=== PATIENT | female | born 1970 | race Caucasian/White ===

== ENCOUNTER → 2017-06-15 | Outpatient (CLI) | payer BC ==
--- NOTE | 2017-06-16 10:05 | MM ---
Reason for exam: screening (asymptomatic). Last mammogram was performed 7 years and 1 month ago. History: Family history of breast cancer in maternal aunt and breast cancer in paternal grandmother. Physical Findings: A clinical breast exam by your physician is recommended on an annual basis and results should be correlated with mammographic findings. MG Screening Mammo w CAD Bilateral CC, MLO, and XCCL view(s) were taken. Prior study comparison: May 18, 2010, bilateral digital screening mammo w/CAD. August 21, 2009, mammogram, performed at [facility]. The breast tissue is heterogeneously dense. This may lower the sensitivity of mammography. Finding: There are typically benign round calcifications in both breasts. There is no discrete abnormality. No significant changes in finding since May 18, 2010 and August 21, 2009. ASSESSMENT: Benign, BI-RAD 2 RECOMMENDATION: Routine screening mammogram of both breasts in 1 year.
== END | disposition home or self-care (01) ==
LOC: RADMAMWWP 13:58
PROVIDERS: ATTEND Family Medicine
DX: Z12.31 Encounter for screening mammogram for malignant neoplasm of breast (principal)
CPT/HCPCS: 77067

== ENCOUNTER 2017-07-13 06:41 | Day surgery (SDC) | payer BC ==
[2017-07-12 13:01] VITALS: BMI 34.2
[~2017-07-13 06:41] MED LIST: LACTATED RINGERS 1,000 ML IV SCH
[2017-07-13 06:59] VITALS: TEMP 98
[2017-07-13 07:12] LABS: Glucose,Whole Blood 140 mg/dL (75-99)
[2017-07-13] MEDS ORDERED: PROPOFOL 10 MG/ML 20 ML VIAL IV ONE (07:35)
[2017-07-13 08:39] VITALS: BP 131/86; PULSE 73; RESP 16
--- NOTE | 2017-07-13 08:48 | P.PCN ---
Date of Procedure: 07/13/17 Procedure(s) Performed: BRIEF HISTORY: Patient is a 47-year-old pleasant white female, scheduled for an elective colonoscopy as a part of chronic diarrhea and fecal incontinence for the last several months duration. She has about 3-4 loose watery bowel movement daily. Denies any blood or mucus in the stool. She is hence scheduled for colonoscopy to evaluate further. PROCEDURE PERFORMED: Colonoscopy with biopsy and snare polypectomy. PREOPERATIVE DIAGNOSIS:. Diarrhea and fecal incontinence. IV sedation per Anesthesia. PROCEDURE: After informed consent was obtained, the patient, was brought into the endoscopy unit. IV sedation was administered by Anesthesia under continuous monitoring. Digital rectal examination was normal. Initially the Olympus CF- 160 flexible video colonoscope was then inserted in the rectum, gradually advanced into the cecum without any difficulty. Careful examination was performed as the scope was gradually being withdrawn. Ileocecal valve and the appendiceal orifice were visualized and appeared normal. Prep was excellent. In the base of cecum there was a 3-4 cm large polyp noted involving the appendiceal orifice status post piecemeal snare polypectomy and complete polyp that was accomplished. Mucosa of the cecum, ascending colon, transverse colon, descending colon, sigmoid colon, and rectum appeared normal. In the mid rectum there was a large diverticulum identified. Biopsies were done from ascending and descending colon to rule out metastatic/collagenous colitis. Retroflexion was performed in the rectum and no lesions were seen. The patient tolerated the procedure well. IMPRESSION: 3-4 cm cecal polyp the base of which involving the appendiceal orifice status post complete polypectomy in a piecemeal fashion. Rest of the colon appeared normal Large diverticulum in the mid rectum. RECOMMENDATIONS: Findings of this examination were discussed with the patient as well as a family. She was advised to follow with the biopsy results and she' ll be seen in office in one to 2 weeks. She will need to have a repeat surveillance colonoscopy in 3-4 months to ensure complete polypectomy.
== END 2017-07-13 08:55 | disposition home or self-care (01) ==
LOC: ORWHC2ENDO 06:41
PROVIDERS: ATTEND Internal Medicine Gastroenterology
DX: D12.0 Benign neoplasm of cecum (principal); J45.909 Unspecified asthma, uncomplicated; K57.30 Diverticulosis of large intestine without perforation or abscess without bleeding; E11.9 Type 2 diabetes mellitus without complications; Z79.84 Long term (current) use of oral hypoglycemic drugs; Z79.899 Other long term (current) drug therapy; Z90.49 Acquired absence of other specified parts of digestive tract; Z90.710 Acquired absence of both cervix and uterus; Z88.0 Allergy status to penicillin; Z88.5 Allergy status to narcotic agent; Z88.8 Allergy status to other drugs, medicaments and biological substances
CPT/HCPCS: 88305; 45385; 45380; J2704

== ENCOUNTER 2017-09-30 06:48 | Day surgery (SDC) | payer BC ==
[2017-09-27 16:05] VITALS: BMI 34.1
[2017-09-30 07:10] VITALS: TEMP 98.7
[2017-09-30] MEDS ORDERED: LACTATED RINGERS 1,000 ML IV ONE ×2 (07:12)
[2017-09-30 07:15] LABS: Glucose,Whole Blood 170 mg/dL (75-99)
[2017-09-30] MEDS ORDERED: PROPOFOL 10 MG/ML 20 ML VIAL IV ONE (07:42)
[2017-09-30 08:23] VITALS: RESP 16
[2017-09-30 08:24] VITALS: BP 137/88; PULSE 75
--- NOTE | 2017-09-30 08:29 | P.PCN ---
Date of Procedure: 09/30/17 Procedure(s) Performed: BRIEF HISTORY: Patient is a 47-year-old pleasant white female scheduled for an elective colonoscopy as a part of follow-up of large cecal polyp noted on colonoscopy 3 months ago. The cecal polyp was 4 cm and biopsies revealed tubular villous adenoma. She is hence scheduled for surveillance colonoscopy today. PROCEDURE PERFORMED: Colonoscopy with snare polypectomy. PREOPERATIVE DIAGNOSIS: Follow-up large cecal polyp. IV sedation per Anesthesia. PROCEDURE: After informed consent was obtained, the patient, was brought into the endoscopy unit. IV sedation was administered by Anesthesia under continuous monitoring. Digital rectal examination was normal. Initially the Olympus CF- 160 flexible video colonoscope was then inserted in the rectum, gradually advanced into the cecum without any difficulty. Careful examination was performed as the scope was gradually being withdrawn. Ileocecal valve and the appendiceal orifice were visualized and appeared normal. Prep was excellent. The cecum there was a 5 mm residual polyp that was removed by snare polypectomy. In the ascending colon there was another 5 mm polyp removed by snare polypectomy. The rest of the mucosa of the cecum, ascending colon, transverse colon, descending colon, sigmoid colon, and rectum appeared normal. In the rectum there was a large diverticulum noted. Retroflexion was performed in the rectum and no lesions were seen. The patient tolerated the procedure well. IMPRESSION: 5 mm residual cecal polyp status post polypectomy 5 mm ascending colon polyp status post polypectomy Rectal diverticulum RECOMMENDATIONS: Findings of this examination were discussed with the patient as well as her family. She was advised to follow with the biopsy results. If the biopsy shows a tubular adenoma she can have a repeat colonoscopy in 3 years. ].
== END 2017-09-30 08:41 | disposition home or self-care (01) ==
LOC: ORWHC2ENDO 06:48
PROVIDERS: ATTEND Internal Medicine Gastroenterology
DX: Z12.11 Encounter for screening for malignant neoplasm of colon (principal); K63.5 Polyp of colon; E78.5 Hyperlipidemia, unspecified; I10 Essential (primary) hypertension; E11.9 Type 2 diabetes mellitus without complications; K57.30 Diverticulosis of large intestine without perforation or abscess without bleeding; Z88.0 Allergy status to penicillin; Z88.8 Allergy status to other drugs, medicaments and biological substances; Z79.84 Long term (current) use of oral hypoglycemic drugs; Z79.899 Other long term (current) drug therapy
CPT/HCPCS: 88305; 45385; J2704

== ENCOUNTER → 2018-06-29 | Outpatient (CLI) | payer BC ==
--- NOTE | 2018-06-29 13:57 | CT ---
EXAMINATION TYPE: CT brain wo con DATE OF EXAM: 06/29/2018 COMPARISON: None. HISTORY: Headache CT DLP: 1054.2 mGycm. Automated Exposure Control for Dose Reduction was Utilized. TECHNIQUE: CT scan of the head is performed without contrast. FINDINGS: There is no acute intracranial hemorrhage, mass effect, or midline shift identified. The ventricles and sulci are within normal limits in size. Sim-white matter differentiation is maintain ed. The globes are intact and the visualized sinuses are clear. The calvarium is intact. IMPRESSION: No acute intracranial hemorrhage or midline shift is seen. Unremarkable study.
== END | disposition home or self-care (01) ==
LOC: RADCTMAIN 13:28
PROVIDERS: ATTEND Family Medicine
DX: R51 Headache (principal); Z88.0 Allergy status to penicillin; Z88.5 Allergy status to narcotic agent; Z88.8 Allergy status to other drugs, medicaments and biological substances
CPT/HCPCS: 70450

== ENCOUNTER → 2018-08-21 | Outpatient (CLI) | payer BC ==
[2018-08-16 14:03] VITALS: BMI 34.2
[2018-08-21 13:08] VITALS: BP 154/94; PULSE 94; RESP 18
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
== END | disposition home or self-care (01) ==
LOC: PNWHC3 12:19
PROVIDERS: ATTEND Specialist
DX: G89.29 Other chronic pain (principal); M47.812 Spondylosis without myelopathy or radiculopathy, cervical region; M46.92 Unspecified inflammatory spondylopathy, cervical region; R51 Headache; Z79.1 Long term (current) use of non-steroidal anti-inflammatories (NSAID)
CPT/HCPCS: 99201

== ENCOUNTER → 2019-05-08 | Outpatient (CLI) | payer BC ==
--- NOTE | 2019-05-09 09:50 | MM ---
Reason for exam: screening (asymptomatic). Last mammogram was performed 1 year and 11 months ago. History: Family history of breast cancer in maternal aunt and breast cancer in paternal grandmother. Physical Findings: A clinical breast exam by your physician is recommended on an annual basis and results should be correlated with mammographic findings. MG 3D Screening Mammo W/Cad Bilateral CC and MLO view(s) were taken. Prior study comparison: June 15, 2017, bilateral MG screening mammo w CAD. May 18, 2010, bilateral digital screening mammo w/CAD. The breast tissue is heterogeneously dense. This may lower the sensitivity of mammography. Benign appearing bilateral calcifications. ASSESSMENT: Benign, BI-RAD 2 RECOMMENDATION: Routine screening mammogram of both breasts in 1 year.
== END | disposition home or self-care (01) ==
LOC: RADMAMWWP 14:57
PROVIDERS: ATTEND Family Medicine
DX: Z12.31 Encounter for screening mammogram for malignant neoplasm of breast (principal)
CPT/HCPCS: 77063; 77067

== ENCOUNTER 2020-05-02 07:08 | Day surgery (SDC) | payer BC ==
[2020-04-29 11:38] VITALS: BMI 32.3
[2020-05-02] MEDS ORDERED: LACTATED RINGERS 1,000 ML IV SCH (07:46)
[2020-05-02 07:49] VITALS: RESP 16; TEMP 96.7
[2020-05-02] MEDS ORDERED: PROPOFOL 10 MG/ML 20 ML VIAL IV ONE (08:01)
[2020-05-02 08:02] LABS: Glucose,Whole Blood 151 mg/dL (75-99)
--- NOTE | 2020-05-02 08:23 | P.PCN ---
Date of Procedure: 05/02/20 Procedure(s) Performed: BRIEF HISTORY: Patient is a 50-year-old pleasant white female scheduled for an elective colonoscopy as a part of follow-up of large cecal polyp noted in June 2017. She was noted to have a 3-4 cm broad-based tubulovillous and adenoma in the cecum that was removed by snare polypectomy and a repeat colonoscopy 3 months later revealed a 5 mm residual polyp that was removed. PROCEDURE PERFORMED: Colonoscopy with biopsy. PREOPERATIVE DIAGNOSIS: Follow-up large cecal polyp. IV sedation per Anesthesia. PROCEDURE: After informed consent was obtained, the patient, was brought into the endoscopy unit. IV sedation was administered by Anesthesia under continuous monitoring. Digital rectal examination was normal. Initially the Olympus CF-160 flexible video colonoscope was then inserted in the rectum, gradually advanced into the cecum without any difficulty. Careful examination was performed as the scope was gradually being withdrawn. Ileocecal valve and the appendiceal orifice were visualized and appeared normal. Prep was excellent. No evidence of residual cecal polyp. Mucosa of the cecum, ascending colon, transverse colon, descending colon, sigmoid colon, and rectum appeared normal. The distal rectum there was a slightly raised 2 cm submucosal polypoid area with normal appearing overlying mucosa which was biopsied. Retroflexion was performed in the rectum and no lesions were seen. The patient tolerated the procedure well. IMPRESSION: No residual cecal polyp noted 2 cm submucosal distal rectal lesion with normal-appearing mucosa status post biopsies RECOMMENDATIONS: Findings of this examination were discussed with the patient and a family. She was advised to with the biopsy results and she'll be seen in office in 2 weeks..
[2020-05-02 08:40] VITALS: BP 134/80; PULSE 71
== END 2020-05-02 08:59 | disposition home or self-care (01) ==
LOC: ORWHC2ENDO 07:08
PROVIDERS: ATTEND Internal Medicine Gastroenterology
DX: Z12.11 Encounter for screening for malignant neoplasm of colon (principal); K62.1 Rectal polyp; I10 Essential (primary) hypertension; E78.5 Hyperlipidemia, unspecified; J45.909 Unspecified asthma, uncomplicated; E11.9 Type 2 diabetes mellitus without complications; M54.2 Cervicalgia; R51.9 Headache, unspecified; E66.9 Obesity, unspecified; Z68.32 Body mass index [BMI] 32.0-32.9, adult; Z79.84 Long term (current) use of oral hypoglycemic drugs; Z79.899 Other long term (current) drug therapy; Z88.5 Allergy status to narcotic agent; Z88.0 Allergy status to penicillin
CPT/HCPCS: 88305; 45380; J2704

== ENCOUNTER 2020-06-03 12:30 | Emergency (ER) | payer BC ==
[2020-06-03 12:35] VITALS: TEMP 98.1
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
[2020-06-03 13:25] VITALS: BP 130/83; PULSE 73; RESP 16
== END 2020-06-03 13:27 | disposition home or self-care (01) ==
LOC: EC 12:30
DX: K64.9 Unspecified hemorrhoids (principal); E11.9 Type 2 diabetes mellitus without complications; I10 Essential (primary) hypertension; E78.5 Hyperlipidemia, unspecified; Z79.84 Long term (current) use of oral hypoglycemic drugs; Z79.899 Other long term (current) drug therapy; Z88.0 Allergy status to penicillin; Z88.5 Allergy status to narcotic agent; Z88.8 Allergy status to other drugs, medicaments and biological substances
CPT/HCPCS: 99283

== ENCOUNTER → 2021-05-28 | Outpatient (CLI) | payer BC ==
--- NOTE | 2021-05-28 08:23 | CT ---
EXAMINATION TYPE: CT brain wo con DATE OF EXAM: 05/28/2021 COMPARISON: CT brain June 29, 2018 HISTORY: Chronic headaches, increasing in severity since May 14 CT DLP: 1070 mGycm. Automated Exposure Control for Dose Reduction was Utilized. TECHNIQUE: CT scan of the head is performed without contrast. FINDINGS: There is no acute intracranial hemorrhage, mass effect, or midline shift identified. Mil d CSF prominence over the superior bilateral frontal lobes redemonstrated system with mild atrophy. T he ventricles and sulci are stable and otherwise within normal limits in size. Sim-white matter dif ferentiation is maintained. The globes are intact and the visualized sinuses are clear. IMPRESSION: No acute intracranial hemorrhage or midline shift is seen. No significant change from pr ior.
== END | disposition home or self-care (01) ==
LOC: RADCTMAIN 07:19
PROVIDERS: ATTEND Family Medicine
DX: R51.9 Headache, unspecified (principal)
CPT/HCPCS: 70450

== ENCOUNTER → 2022-05-14 | Outpatient (CLI) | payer BC ==
--- NOTE | 2022-05-17 10:36 | MM ---
Reason for Exam: Screening (asymptomatic). Last mammogram was performed 3 year(s) and 0 month(s) ago. Patient History: Menarche at age 14. First Full-Term at age 22. Right ovary removed at age 36. Hysterectomy at age 36. Patient has history of breast feeding. Paternal grandmother had breast cancer. Maternal aunt had breast cancer under age 50. Risk Values: Hermila 5 year model risk: 0.9%. NCI Lifetime model risk: 8.0%. Prior Study Comparison: 05/18/2010 Bilateral Screening Mammogram, [facility]. 06/15/2017 Bilateral Screening Mammogram, [facility]. 05/08/2019 Bilateral Screening Mammogram, [facility]. Tissue Density: The breast tissue is heterogeneously dense. This may lower the sensitivity of mammography. Findings: Analyzed By CAD. There are scattered tiny benign-appearing round calcifications throughout the bilateral breasts redemonstrated. There is no suspicious new group of microcalcifications or new suspicious mass in either breast. Overall Assessment: Benign, BI-RAD 2 Management: Screening Mammogram of both breasts in 1 year. A clinical breast exam by your physician is recommended on an annual basis and results should be correlated with mammographic findings. Electronically signed and approved by: Aristides Rao M.D.
== END | disposition home or self-care (01) ==
LOC: RADMAMWWP 16:36
PROVIDERS: ATTEND Obstetrics & Gynecology
DX: Z12.31 Encounter for screening mammogram for malignant neoplasm of breast (principal); Z80.3 Family history of malignant neoplasm of breast
CPT/HCPCS: 77063; 77067

== ENCOUNTER → 2023-08-11 | Outpatient (CLI) | payer BC ==
--- NOTE | 2023-08-12 15:00 | XR ---
EXAMINATION TYPE: XR thoracic spine complete DATE OF EXAM: 08/11/2023 CLINICAL HISTORY: pain TECHNIQUE: Frontal, lateral, and swimmer's view of thoracic spine are obtained. COMPARISON: None. FINDINGS: Thoracic spine show satisfactory alignment without evidence of acute fracture or dislocatio n. Vertebral body heights are preserved. Mild multilevel degenerative disc disease and spondylosis. Visualized ribs are unremarkable. IMPRESSION: No acute fracture or dislocation is seen in the thoracic spine. ICD 10 NO FRACTURE, INIT IAL EVALUATION
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
== END | disposition home or self-care (01) ==
LOC: RADXRMAIN 14:59
PROVIDERS: ATTEND Family Medicine
DX: M50.30 Other cervical disc degeneration, unspecified cervical region (principal); M54.6 Pain in thoracic spine
CPT/HCPCS: 72040; 72072

== ENCOUNTER 2023-10-21 14:36 | Emergency (ER) | payer OTHER, BC ==
[2023-10-21 14:45] VITALS: RESP 16; TEMP 97.9
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
[2023-10-21] MEDS: IBUPROFEN 400 MG TAB PO STA (16:58)
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
[2023-10-21 18:56] VITALS: BP 160/95; PULSE 98
== END 2023-10-21 18:56 | disposition home or self-care (01) ==
LOC: EC 14:36
DX: M54.2 Cervicalgia (principal); M25.511 Pain in right shoulder; Z88.0 Allergy status to penicillin; Z88.5 Allergy status to narcotic agent; Z88.8 Allergy status to other drugs, medicaments and biological substances; V89.2XXA Person injured in unspecified motor-vehicle accident, traffic, initial encounter; Y92.410 Unspecified street and highway as the place of occurrence of the external cause
CPT/HCPCS: 72125; 93005; 99285

== ENCOUNTER → 2023-12-07 | Outpatient (CLI) | payer BC | LOC: PNWHC3 10:00 | PROVIDERS: ATTEND Specialist | DX: M54.12 Radiculopathy, cervical region | CPT/HCPCS: 99211 ==

== ENCOUNTER → 2024-11-12 | Outpatient (CLI) | payer BC ==
--- NOTE | 2024-11-12 09:42 | MM ---
Reason for Exam: Screening (asymptomatic). Last mammogram was performed 2 year(s) and 6 month(s) ago. Patient History: Menarche at age 14. First Full-Term at age 22. Right ovary removed at age 36. Hysterectomy at age 36. Patient has history of breast feeding. Paternal grandmother had breast cancer at or over age 50. Maternal aunt had breast cancer under age 50. Risk Values: Hermila 5 year model risk: 0.9%. NCI Lifetime model risk: 7.8%. Prior Study Comparison: 06/15/2017 Bilateral Screening Mammogram, [facility]. 05/08/2019 Bilateral Screening Mammogram, [facility]. 05/14/2022 Bilateral MG 3D screening mammo w/cad, [facility]. Tissue Density: The breasts are heterogeneously dense, which may obscure small masses. Findings: Analyzed By CAD. Unchanged scattered benign round and punctate calcifications. There is no suspicious group of microcalcifications or new suspicious mass in either breast. Overall Assessment: Benign, BI-RAD 2 Management: Screening Mammogram of both breasts in 1 year. Patient should continue monthly self-breast exams. A clinical breast exam by your physician is recommended on an annual basis. This exam should not preclude additional follow-up of suspicious palpable abnormalities. Note on Hermila scores and lifetime risk: 1. A Hermila score greater than 3% is considered moderate risk. If this is the case, consider specialist referral to assess eligibility for a risk reducing agent. 2. If overall lifetime risk for the development of breast cancer is 20% or higher, the patient may qualify for future screening with alternating mammogram and breast MRI. [facility], , 11/12/2024 9:39 AM. Electronically signed and approved by: Tenzin Martins M.D. Radiologist
== END | disposition home or self-care (01) ==
LOC: RADMAMWWP 07:55
PROVIDERS: ATTEND Family Medicine
DX: Z12.31 Encounter for screening mammogram for malignant neoplasm of breast (principal); R92.333 Mammographic heterogeneous density, bilateral breasts; R92.1 Mammographic calcification found on diagnostic imaging of breast; Z80.3 Family history of malignant neoplasm of breast
CPT/HCPCS: 77063; 77067